=== PATIENT | male | born 1945 | race American Indian/Alaskan Native ===

== ENCOUNTER 2016-12-04 10:27 | Emergency (ER) | payer OTHER ==
--- NOTE | 2016-12-04 11:01 | EDM.PDOC ---
ED HPI ENT - General Chief Complaint: ENT Problem Stated Complaint: NOSE Time Seen by Provider: 12/04/16 10:29 - History of Present Illness INITIAL COMMENTS - FREE TEXT/NARRATIVE: History of present illness: [71 yo male with history of HTN with left nasal bleeding since yesterday morning. He tried packing it but has not stopped. He went to [place] today and was sent here. He denies Fever, chills, URI symptoms, cough, chest pain, palpitations, n/v/d, abdominal pain, syncope, dizziness, vision changes or neurological changes. He has history of epitaxsis that he had cautery of the left nostril. He states his blood pressure is well controlled but he does take his medications regularly. He does not smoke, He chews tobacco, He drinks alchol everyday but denies abuse, Smokes marijuana occasionally. His tetanus and vaccines are uptodate. ] Review of systems: As per history of present illness and below otherwise all systems reviewed and negative. Past medical history: As per history of present illness and as reviewed below otherwise noncontributory. Surgical history: As per history of present illness and as reviewed below otherwise noncontributory. Family history: As per history of present illness and as reviewed below otherwise noncontributory. Physical exam: General: Well developed, well nourished in NAD HEENT: Atraumatic, normocephalic, pupils reactive, negative for conjunctival pallor or scleral icterus, mucous membranes moist, throat clear, neck supple, nontender, trachea midline. NOSE: left nasal guaze in place with dry crusted bleed. No active bleeding noted. Lungs: Clear to auscultation, breath sounds equal bilaterally, chest nontender. Heart: S1S2, regular, negative for clicks, rubs, or JVD. Abdomen: Soft, nondistended, nontender. Negative for masses or hepatosplenomegaly. Negative for costovertebral tenderness. Pelvis: Stable nontender. Genitourinary: Deferred. Rectal: Deferred. Extremities: Atraumatic, negative for cords or calf pain. Neurovascular unremarkable. Neuro: Awake, alert, oriented. Cranial nerves II through XII unremarkable. Cerebellum unremarkable. Motor and sensory unremarkable throughout. Exam nonfocal. Diagnostics: [cbc, PTT/PT/INR: unremarkable.] Therapeutics: [rapid rhino packing, clonidine po x 1 ] Impression: [left nasal epitaxisis] Plan: Rx augmentin x 5 days [Referral made to ENT. Must follow up within 24 -48 hours. f/u with PCP] Definitive disposition and diagnosis as appropriate pending reevaluation and review of above. - Related Data Allergies/ADRs: Allergies Allergy/AdvReac Type Severity Reaction Status Date / Time lisinopril Allergy Hives Verified 12/04/16 11:42 Home Meds: Home Meds Cholecalciferol (Vitamin D3) [Cholecalciferol] 2 tab PO DAILY 03/17/16 [History] Hydrochlorothiazide 0.5 tab PO DAILY 03/17/16 [History] Losartan [Cozaar] 100 mg PO DAILY 03/17/16 [History] Past Medical History HEENT History: Reports: Epistaxis Cardiovascular History: Reports: High cholesterol, Hypertension Respiratory History: Reports: None Gastrointestinal History: Reports: None Genitourinary History: Reports: None Musculoskeletal History: Reports: None Psychiatric History: Reports: None Endocrine/Metabolic History: Reports: None Hematologic History: Reports: None Immunologic History: Reports: None Oncologic (Cancer) History: Reports: None Dermatologic History: Reports: None - Infectious Disease History Infectious Disease History: Reports: None - Past Surgical History Head Surgeries/Procedures: Reports: None HEENT Surgical History: Reports: Other (see below) Other HEENT Surgeries/Procedures: nasal cautery Social & Family History - Family History Family Medical History: Noncontributory - Tobacco Use Smoking Status *Q: Former Smoker - Caffeine Use Caffeine Use: Reports: Coffee - Alcohol Use Days Per Week of Alcohol Use: 7 Number of Drinks Per Day: 6 Total Drinks Per Week: 42 - Recreational Drug Use Recreational Drug Use: Yes Drug Use in Last 12 Months: Yes Recreational Drug Type: Reports: Marijuana/Hashish ED ROS ENT - Review of Systems Review Of Systems: See Below (See history of present illness) ED EXAM, ENT - Physical Exam Exam: See Below (History of present illness) Course - Vital Signs Last Recorded V/S: Last Vital Signs Temp 97.4 F 12/04/16 10:34 Pulse 60 12/04/16 11:20 Resp 18 12/04/16 11:20 BP 195/103 H 12/04/16 11:20 Pulse Ox 97 12/04/16 11:20 - Orders/Labs/Meds Orders: Active Orders 24 hr Category Date Time Status Nasal Tampon [OM.PC] Routine Oth 12/04/16 11:08 Ordered Labs: Laboratory Tests 12/04/16 12/04/16 Range/Units 10:59 10:59 WBC 7.08 (4.0-11.0) K/uL RBC 5.55 (4.50-5.90) M/uL Hgb 17.7 H (13.0-17.0) g/dL Hct 51.5 H (38.0-50.0) % MCV 92.8 (80.0-98.0) fL MCH 31.9 (27.0-32.0) pg MCHC 34.4 (31.0-37.0) g/dL RDW Std Deviation 45.0 (28.0-62.0) fl RDW Coeff of Massiel 13 (11.0-15.0) % Plt Count 280 (150-400) K/uL MPV 10.50 (7.40-12.00) fL Neut % (Auto) 68.0 (48.0-80.0) % Lymph % (Auto) 23.4 (16.0-40.0) % [place] % (Auto) 7.8 (0.0-15.0) % Eos % (Auto) 0.7 (0.0-7.0) % Baso % (Auto) 0.1 (0.0-1.5) % Neut # (Auto) 4.8 (1.4-5.7) K/uL Lymph # (Auto) 1.7 (0.6-2.4) K/uL [place] # (Auto) 0.6 (0.0-0.8) K/uL Eos # (Auto) 0.1 (0.0-0.7) K/uL Baso # (Auto) 0.0 (0.0-0.1) K/uL Nucleated RBC % 0.0 /100WBC Nucleated RBCs # 0 K/uL INR 1.06 (0.86-1.11) APTT 28.2 (18.6-31.3) SEC Meds: Medications Discontinued Medications Generic Name Dose Route Start Last Admin Trade Name Freq PRN Reason Stop Dose Admin Clonidine HCl 0.1 mg 12/04/16 11:05 12/04/16 11:19 Catapres PO 12/04/16 11:06 0.1 mg ONETIME ONE Administration Departure - Departure Time of Disposition: 11:24 Disposition: Home, Self-Care 01 Condition: good Clinical Impression: Epistaxis Referrals: PCP,None [Primary Care Provider] - Roxanne Alvarez MD [Physician] - Forms: ED Department Discharge Additional Instructions: The following information is given to patients seen in the emergency department who are being discharged to home. This information is to outline your options for follow-up care. We provide all patients seen in our emergency department with a follow-up referral. The need for follow-up, as well as the timing and circumstances, are variable depending upon the specifics of your emergency department visit. If you don't have a primary care physician on staff, we will provide you with a referral. We always advise you to contact your personal physician following an emergency department visit to inform them of the circumstance of the visit and for follow-up with them and/or the need for any referrals to a consulting specialist. The emergency department will also refer you to a specialist when appropriate. This referral assures that you have the opportunity for follow-up care with a specialist. All of these measure are taken in an effort to provide you with optimal care, which includes your follow-up. Under all circumstances we always encourage you to contact your private physician who remains a resource for coordinating your care. When calling for follow-up care, please make the office aware that this follow-up is from your recent emergency room visit. If for any reason you are refused follow-up, please contact the [facility] Emergency Department at and asked to speak to the emergency department charge nurse. - My Orders Last 24 Hours: My Active Orders 12/04/16 11:08 Nasal Tampon [OM.PC] Routine - Assessment/Plan Last 24 Hours: My Active Orders 12/04/16 11:08 Nasal Tampon [OM.PC] Routine
[2016-12-04] MEDS ORDERED: cloNIDine 0.1 MG Tab PO ONE (11:05)
[2016-12-04 12:13] VITALS: BP 179/97
== END 2016-12-04 12:11 | disposition home or self-care (01) ==
LOC: MW.ED 10:27
DX: R04.0 Epistaxis (principal); E78.00 Pure hypercholesterolemia, unspecified; I10 Essential (primary) hypertension; Z88.8 Allergy status to other drugs, medicaments and biological substances; Z79.899 Other long term (current) drug therapy; Z87.891 Personal history of nicotine dependence
CPT/HCPCS: 30903; 36415; 85025; 85610; 85730; 99283; A9270

== ENCOUNTER 2016-12-05 08:45 | Emergency (ER) | payer OTHER, MEDICARE ==
[2016-12-05] MEDS ORDERED: cloNIDine 0.1 MG Tab PO ONE (08:54)
--- NOTE | 2016-12-05 09:05 | EDM.PDOC ---
ED HPI ENT - General Chief Complaint: ENT Problem Stated Complaint: NOSE BLEED Time Seen by Provider: 12/05/16 08:47 - History of Present Illness INITIAL COMMENTS - FREE TEXT/NARRATIVE: History of present illness: [71-year-old male with uncontrolled hypertension returns to ED for left nostril bleeding. He states the bleeding has soaked through his rhino pack that was placed yesterday here. He has appointment with ENT today. ] Review of systems: As per history of present illness and below otherwise all systems reviewed and negative. Past medical history: As per history of present illness and as reviewed below otherwise noncontributory. Surgical history: As per history of present illness and as reviewed below otherwise noncontributory. Social history: No reported history of drug or alcohol abuse. Family history: As per history of present illness and as reviewed below otherwise noncontributory. Physical exam: General: Well developed, well nourished in NAD HEENT: Atraumatic, normocephalic, pupils reactive, negative for conjunctival pallor or scleral icterus, mucous membranes moist, throat clear, neck supple, nontender, trachea midline. NOSE: dry crusted blood. No active bleeding Lungs: Clear to auscultation, breath sounds equal bilaterally, chest nontender. Heart: S1S2, regular, negative for clicks, rubs, or JVD. Abdomen: Soft, nondistended, nontender. Negative for masses or hepatosplenomegaly. Negative for costovertebral tenderness. Pelvis: Stable nontender. Genitourinary: Deferred. Rectal: Deferred. Extremities: Atraumatic, negative for cords or calf pain. Neurovascular unremarkable. Neuro: Awake, alert, oriented. Cranial nerves II through XII unremarkable. Cerebellum unremarkable. Motor and sensory unremarkable throughout. Exam nonfocal. Diagnostics: [] Therapeutics: [clonidine 0.1 x 1 ] Impression: [Left nostril epitaxsis HTN] Plan: [f/u with ENT today increase his home medication HCTZ to 50 mg po qd and continue cozaar. ] Definitive disposition and diagnosis as appropriate pending reevaluation and review of above. - Related Data Allergies/ADRs: Allergies Allergy/AdvReac Type Severity Reaction Status Date / Time lisinopril Allergy Hives Verified 12/04/16 11:42 Home Meds: Home Meds Cholecalciferol (Vitamin D3) [Cholecalciferol] 2 tab PO DAILY 03/17/16 [History] Hydrochlorothiazide 0.5 tab PO DAILY 03/17/16 [History] Losartan [Cozaar] 100 mg PO DAILY 03/17/16 [History] Past Medical History HEENT History: Reports: Epistaxis Cardiovascular History: Reports: High cholesterol, Hypertension Respiratory History: Reports: None Gastrointestinal History: Reports: None Genitourinary History: Reports: None Musculoskeletal History: Reports: None Psychiatric History: Reports: None Endocrine/Metabolic History: Reports: None Hematologic History: Reports: None Immunologic History: Reports: None Oncologic (Cancer) History: Reports: None Dermatologic History: Reports: None - Infectious Disease History Infectious Disease History: Reports: None - Past Surgical History Head Surgeries/Procedures: Reports: None HEENT Surgical History: Reports: Other (see below) Other HEENT Surgeries/Procedures: nasal cautery Social & Family History - Family History Family Medical History: Noncontributory - Tobacco Use Smoking Status *Q: Former Smoker - Caffeine Use Caffeine Use: Reports: Coffee - Alcohol Use Days Per Week of Alcohol Use: 7 Number of Drinks Per Day: 6 Total Drinks Per Week: 42 - Recreational Drug Use Recreational Drug Use: Yes Drug Use in Last 12 Months: Yes Recreational Drug Type: Reports: Marijuana/Hashish ED ROS ENT - Review of Systems Review Of Systems: See Below (See history of present illness) ED EXAM, ENT - Physical Exam Exam: See Below (History of present illness) Course - Vital Signs Last Recorded V/S: Last Vital Signs Temp 97.0 F 12/05/16 08:49 Pulse 76 12/05/16 08:49 Resp 24 H 12/05/16 08:49 BP 193/107 H 12/05/16 08:49 Pulse Ox 98 12/05/16 08:49 - Orders/Labs/Meds Meds: Medications Discontinued Medications Generic Name Dose Route Start Last Admin Trade Name Freq PRN Reason Stop Dose Admin Clonidine HCl 0.1 mg 12/05/16 08:54 Catapres PO 12/05/16 08:55 ONETIME ONE Departure - Departure Time of Disposition: 09:05 Disposition: Home, Self-Care 01 Condition: good Clinical Impression: Bleeding nose, Epistaxis, recurrent Forms: ED Department Discharge Additional Instructions: The following information is given to patients seen in the emergency department who are being discharged to home. This information is to outline your options for follow-up care. We provide all patients seen in our emergency department with a follow-up referral. The need for follow-up, as well as the timing and circumstances, are variable depending upon the specifics of your emergency department visit. If you don't have a primary care physician on staff, we will provide you with a referral. We always advise you to contact your personal physician following an emergency department visit to inform them of the circumstance of the visit and for follow-up with them and/or the need for any referrals to a consulting specialist. The emergency department will also refer you to a specialist when appropriate. This referral assures that you have the opportunity for follow-up care with a specialist. All of these measure are taken in an effort to provide you with optimal care, which includes your follow-up. Under all circumstances we always encourage you to contact your private physician who remains a resource for coordinating your care. When calling for follow-up care, please make the office aware that this follow-up is from your recent emergency room visit. If for any reason you are refused follow-up, please contact the [facility] Emergency Department at and asked to speak to the emergency department charge nurse.
[2016-12-05 10:41] VITALS: BP 153/96
== END 2016-12-05 09:17 | disposition home or self-care (01) ==
LOC: MW.ED 08:45
DX: R04.0 Epistaxis (principal); I10 Essential (primary) hypertension; Z88.8 Allergy status to other drugs, medicaments and biological substances; Z79.899 Other long term (current) drug therapy; E78.00 Pure hypercholesterolemia, unspecified; Z87.891 Personal history of nicotine dependence
CPT/HCPCS: 99283; A9270

== ENCOUNTER → 2016-12-05 | Outpatient (CLI) | payer MEDICARE, OTHER | LOC: MW.CHENT 08:00 | PROVIDERS: ATTEND Otolaryngology | DX: R04.0 Epistaxis (principal); I10 Essential (primary) hypertension | CPT/HCPCS: 30901; 99204 ==

== ENCOUNTER → 2016-12-08 | Outpatient (CLI) | payer MEDICARE, OTHER | LOC: MW.CHENT 08:00 | PROVIDERS: ATTEND Otolaryngology | DX: R04.0 Epistaxis (principal) | CPT/HCPCS: G0463 ==

== ENCOUNTER 2018-02-28 06:39 | Day surgery (SDC) | payer OTHER, MEDICARE ==
[~2018-02-28 06:39] MED LIST: Lactated Ringers 1,000 ML IV SCH; Sodium Chloride 0.9% 10 ML Syringe FLUSH PRN; Sodium Chloride 0.9% 2.5 ML Syringe FLUSH PRN; ceFAZolin 2 GM in Premix Bag 1 BAG IV ONE
[2018-02-28] MEDS ORDERED: Propofol 200 MG/20 ML SDV ONE ×2 (07:24→08:32)
[2018-02-28] MEDS ORDERED: Midazolam 1 MG/ML 2 ML SDV ONE (07:24)
[2018-02-28] MEDS ORDERED: Lidocaine 2% 5 ML SDV ONE (07:24)
[2018-02-28] MEDS ORDERED: fentaNYL 250 MCG/5 ML SDV ONE (07:24)
[2018-02-28] MEDS ORDERED: ePHEDrine 50 MG/ML SDV ONE (07:26)
[2018-02-28] MEDS ORDERED: Ondansetron 4 MG/2 ML SDV ONE (07:26)
[2018-02-28] MEDS ORDERED: ceFAZolin/Dextrose,Iso-Osmotic 2 GM/50 ML Duplex Bag IV ONE (07:26)
[2018-02-28] MEDS ORDERED: Neostigmine Methylsulfate 1 MG/ML 5 ML Syringe ONE (07:26)
[2018-02-28] MEDS ORDERED: Ketorolac 30 MG/ML SDV ONE (07:26)
[2018-02-28] MEDS ORDERED: Rocuronium 10 MG/ML 10 ML Syringe ONE (07:26)
[2018-02-28] MEDS ORDERED: Glycopyrrolate 0.2 MG/ML SDV ONE (07:26)
[2018-02-28] MEDS ORDERED: ceFAZolin 1 GM Vial ONE (07:28)
[2018-02-28] MEDS ORDERED: Bupivacaine 0.5% 30 ML SDV ONE (07:28)
--- NOTE | 2018-02-28 07:28 | PCM.PREANE ---
Preanesthetic Assessment - Anesthesia/Transfusion/Family Hx Anesthesia History: Prior Anesthesia Without Reaction Family History of Anesthesia Reaction: No Transfusion History: No Prior Transfusion(s) Intubation History: Unknown - Review of Systems General: No Symptoms Pulmonary: No Symptoms Cardiovascular: No Symptoms Gastrointestinal: No Symptoms Neurological: No Symptoms Other: Reports: None - Physical Assessment O2 Sat by Pulse Oximetry: 97 Respiratory Rate: 16 Vital Signs: Last Vital Signs Temp 36.4 C 02/28/18 06:57 Pulse 64 02/28/18 06:57 Resp 16 02/28/18 06:57 BP 148/85 H 02/28/18 06:57 Pulse Ox 97 02/28/18 06:57 Height: 1.83 m Weight: 112.945 kg ASA Class: 2 Mental Status: Alert & Oriented x3 Airway Class: Mallampati = 2 Dentition: Reports: Normal Dentition (small chips on front teeth), Missing Tooth /Teeth Thyro-Mental Finger Breadths: 3 Mouth Opening Finger Breadths: 2 ROM/Head Extension: Full Lungs: Clear to Auscultation, Normal Respiratory Effort Cardiovascular: Regular Rate, Regular Rhythm - Allergies Allergies/Adverse Reactions: Allergies Allergy/AdvReac Type Severity Reaction Status Date / Time No Known Allergies Allergy Verified 02/25/18 14:46 - Blood Blood Available: No - Anesthesia Plan Pre-Op Medication Ordered: None - Acknowledgements Anesthesia Type Planned: General Anesthesia Pt an Appropriate Candidate for the Planned Anesthesia: Yes Alternatives and Risks of Anesthesia Discussed w Pt/Guardian: Yes Pt/Guardian Understands and Agrees with Anesthesia Plan: Yes PreAnesthesia Questionnaire HEENT History: Reports: Hard of Hearing, Other (See Below) Other HEENT History: wears glasses, has hearing aids but does not wears them Cardiovascular History: Reports: Hypertension Respiratory History: Reports: None Gastrointestinal History: Reports: None, Other (See Below) Other Gastrointestinal History: "intestinal worm" in [place], in hospital for 7 days Genitourinary History: Reports: None Musculoskeletal History: Reports: None Psychiatric History: Reports: Anxiety Endocrine/Metabolic History: Reports: Obesity/BMI 30+ Hematologic History: Reports: None Immunologic History: Reports: None Oncologic (Cancer) History: Reports: None Dermatologic History: Reports: None - Infectious Disease History Infectious Disease History: Reports: None - Past Surgical History Head Surgeries/Procedures: Reports: None HEENT Surgical History: Reports: Other (See Below) Other HEENT Surgeries/Procedures: hx of cauterization of anterior epistaxis GI Surgical History: Reports: Colonoscopy Musculoskeletal Surgical History: Reports: Other (See Below) Other Musculoskeletal Surgeries/Procedures:: removal of foreign body under local - lower back shrapnel from [place] war - SUBSTANCE USE Smoking Status *Q: Former Smoker Days Per Week of Alcohol Use: 7 Number of Drinks Per Day: 2 Total Drinks Per Week: 14 Recreational Drug Use History: Yes Recreational Drug Type: Reports: Marijuana/Hashish - HOME MEDS Home Medications: Home Meds Cholecalciferol (Vitamin D3) [Cholecalciferol] 1 tab PO DAILY 03/17/16 [History] Hydrochlorothiazide 0.5 tab PO DAILY 03/17/16 [History] Losartan [Cozaar] 100 mg PO DAILY 03/17/16 [History] amLODIPine Besylate [Amlodipine Besylate] 10 mg PO DAILY 02/25/18 [History] atorvaSTATin Calcium [Atorvastatin Calcium] 0.5 tab PO BEDTIME 02/25/18 [History ] - CURRENT (IN HOUSE) MEDS Current Meds: Current Medications Lactated Ringer's (Ringers, Lactated) 1,000 mls @ 125 mls/hr IV ASDIRECTED MAGNUS Last Admin: 02/28/18 07:02 Dose: 125 mls/hr Sodium Chloride (Saline Flush) 10 ml FLUSH ASDIRECTED PRN PRN Reason: Keep Vein Open Sodium Chloride (Saline Flush) 2.5 ml FLUSH ASDIRECTED PRN PRN Reason: Keep Vein Open Discontinued Medications Cefazolin Sodium/Dextrose 2 gm (/ Premix) 50 mls @ 100 mls/hr IV ONETIME ONE Stop: 02/27/18 11:28
[2018-02-28] MEDS ORDERED: fentaNYL 100 MCG/2 ML SDV IVPUSH PRN (08:26)
[2018-02-28] MEDS ORDERED: fentaNYL 100 MCG/2 ML SDV ONE (08:31)
[2018-02-28] MEDS ORDERED: Octyl 2-Cyanoacrylate 1 Tube ONE (09:14)
[2018-02-28] MEDS ORDERED: Acetaminophen/oxyCODONE 325-5 MG Tab PO PRN (09:21)
--- NOTE | 2018-02-28 09:27 | PCM.OPNOTE ---
- General Post-Op/Procedure Note Date of Surgery/Procedure: 02/28/18 Operative Procedure(s): Umbilical hernia repair Findings: Umbilical hernia sac containing pre-peritoneal fat and a hernia sac just above it by a strand of fascia with incarcerated omentum Pre Op Diagnosis: Umbilical hernia Post-Op Diagnosis: same Anesthesia Technique: General ET Tube Primary Surgeon: Maria Fernanda Adorno Fluid Replacement, Intraop: 1,400 EBL in mLs: 5 Condition: Good
--- NOTE | 2018-02-28 10:04 | PCM.POSTAN ---
POST ANESTHESIA ASSESSMENT - MENTAL STATUS Mental Status: Alert, Oriented - RESPIRATORY Respiratory Status: Respiratory Rate WNL - CARDIOVASCULAR CV Status: Pulse Rate WNL, Blood Pressure Stable - GASTROINTESTINAL GI Status: No Symptoms - PAIN Pain Score: 0 - POST OP HYDRATION Hydration Status: Adequate & Stable - OBSERVATIONS Free Text/Narrative:: no anesthesia problems
[2018-02-28 11:48] VITALS: BP 115/63
--- NOTE | 2018-02-28 17:44 | OR ---
SURGEON: AYDE CONKLIN MD DATE OF PROCEDURE: 02/28/2018 PREOPERATIVE DIAGNOSIS: Umbilical hernia. POSTOPERATIVE DIAGNOSIS: Umbilical hernia. PROCEDURE PERFORMED: Repair of umbilical hernia. ANESTHESIA: General endotracheal anesthesia. FLUIDS: 1400 mL crystalloid. ESTIMATED BLOOD LOSS: 5 mL. FINDINGS: Two hernia sacs were noted around the umbilicus; one appeared to be a chronic hernia, the other had omentum incarcerated in it. The fascial defect measured 1.5 cm in size. This was closed primarily. COMPLICATIONS: None. INDICATIONS: The patient is a 73-year-old male who has had a small umbilical hernia his whole life. He was recently lifting something heavy when he felt a pop, and the hernia became larger. He has been sore ever since. Preoperative exam showed a periumbilical hernia. CT of the abdomen and pelvis showed a small umbilical hernia containing omentum. A decision was made to proceed with repair. The patient and I discussed the procedure as well as expected perioperative course. I explained to him that I may repair this primarily if it is small enough. However, should it require a mesh, I will be placing mesh in the wound. The patient and I discussed the risks including bleeding, infection, or damage to the surrounding structures. The patient verbalized understanding and wishes to proceed. PROCEDURE IN DETAIL: The patient was brought to the OR and placed on the OR table in supine position. A time-out was completed verifying the patient's name, age, date of , allergies, and procedure to be performed. General endotracheal anesthesia was induced. The abdomen was prepped and draped in the usual standard fashion. I anesthetized the supraumbilical midline in the area around the umbilicus with 0.5% Marcaine plain. An incision was made along the supraumbilical midline and then chcf around the right side of the umbilicus. This was done using a #15 blade. Cautery was then used to dissect down the level of subcutaneous fat. I immediately encountered a large hernia sac. This was dissected free of the surrounding subcutaneous fat using blunt dissection and Metzenbaum scissors. The hernia sac was attached to the overlying umbilical skin. This was taken down meticulously using a Metzenbaum scissors. Once the hernia sac had been completely freed up from the surrounding subcutaneous fat, I opened the hernia sac. It contained some clear fluid and omentum. I attempted to reduce the omentum back into the abdomen, but it was too swollen, and the fascial defect appeared to be too small. A Harmonic Scalpel was then brought into the field, and I resected the omentum at the level of the fascia. After performing this, a couple of bands of tissue still held the omentum in place. I took these down with the Metzenbaum scissors and the cut edge of the omentum was reduced back into the abdomen. Once this was reduced in the abdomen, I resected the hernia sac at the level of the fascia using the Harmonic. I then noticed another smaller defect just below this. There appeared to be another hernia sac containing preperitoneal fat just below the fascial defect. There was a small piece of tissue my original fascial defect from this small umbilical hernia defect. I cut that with the Metzenbaum scissors. I attempted to reduce the preperitoneal fat back into the abdomen, but it was incarcerated out in the hernia sac. I used blunt dissection and Metzenbaum scissors to free this hernia sac from the surrounding subcutaneous tissues and overlying skin. I then opened up the hernia sac and confirmed that this only contained preperitoneal fat. I then used Harmonic Scalpel to resect the hernia sac and preperitoneal fat. I then ensured that the fascia overlying and underlying my fascial defect was cleared away. I then measured the fascial defect. It measured 1.5 cm in size. Given its small size, a decision was made to close it primarily. I swept the area underneath my fascia and there were no attachments or adhesions to other intra-abdominal structures. The bowel appeared healthy and the omentum was hemostatic. I primarily closed the defect using interrupted 0 Ethibond sutures in the fascia taking care to protect the intra-abdominal tissue below. I then anesthetized the fascia with 0.5% Marcaine plain. I closed the subcutaneous fat and brought the skin back down to the fascia using interrupted 3-0 Vicryl sutures. The skin was then closed with a running 4-0 Monocryl stitch. The incision was then covered with Dermabond which was allowed to dry. A cotton ball was placed within the newly created bellybutton, and sterile dressings were applied. The patient tolerated the procedure well and was taken to PACU in stable condition. ZEUS GALINDO /[id number] SALVADOR
== END 2018-02-28 12:09 | disposition home or self-care (01) ==
LOC: MW.SDS 06:39
PROVIDERS: ATTEND Surgery
DX: K42.9 Umbilical hernia without obstruction or gangrene (principal); I10 Essential (primary) hypertension; F41.9 Anxiety disorder, unspecified; E66.9 Obesity, unspecified; Z68.33 Body mass index [BMI] 33.0-33.9, adult; Z79.899 Other long term (current) drug therapy; Z87.891 Personal history of nicotine dependence
CPT/HCPCS: 49585; A9270; J0690; J1885; J2250; J2405; J3010; J7120; J2704